=== PATIENT | female | born 1990 | race Caucasian/White ===

== ENCOUNTER → 2017-01-11 | Outpatient (CLI) | payer BC ==
[~2017-01-11] MED LIST: PREN-92 PO
[2017-01-11 17:32] LABS: ALBUMIN 3.6 G/DL (3.5-5.0); ALBUMIN/GLOBULIN RATIO 1.1 RATIO (1.1-2.2); ALKALINE PHOSPHATASE 177 U/L (38-126); ALT (SGPT) 122 U/L (9-52); AST (SGOT) 75 U/L (14-36); TOTAL PROTEIN 6.8 G/DL (6.3-8.2)
== END ==
LOC: LAB 17:07
PROVIDERS: ATTEND Family Medicine
DX: O26.899 Other specified pregnancy related conditions, unspecified trimester (principal)
CPT/HCPCS: 36415; 80076

== ENCOUNTER 2017-01-14 12:53 | Outpatient (CLI) | payer BC ==
--- NOTE | 2017-01-14 12:49 | NUR ---
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 Baseline 130, moderate variability, At least 3 15 x 15 accelerations. FHR is occ. irregular in rhythm. Baby is active. Some uterine irritability noted. Patient can feel uterus is a little tighter at times but doesn't feel pain. Patient reports itching all over, not any worse than it has been for the past several days. Patient reports current plans are for repeat biophysical profile on 01-16-17 and [address] Kraft on January 19. Will dismiss. Dismissal instructions reviewed. Verbalized understanding.
== END 2017-01-14 13:00 ==
LOC: OBOBS 12:53 → MC 12:55 → OBOBS 13:00
PROVIDERS: ATTEND Family Medicine
DX: O26.613 Liver and biliary tract disorders in pregnancy, third trimester (principal); K83.1 Obstruction of bile duct; Z3A.31 31 weeks gestation of pregnancy